=== PATIENT | male | born 1935 | race Caucasian/White ===

== ENCOUNTER 2019-09-21 12:08 | Emergency (ER) | payer SELFPAY ==
[~2019-09-21] VITALS: Ht 157.5 cm; Wt 65.8 kg
[~2019-09-21 12:08] MED LIST: ASPI-817 PO; ASPI-831 PO; ATOR20TA38 PO; ENAL10TA PO; INDA2.5T PO; METO-448 PO; NEBI5TAB9 PO; TAMS-14 PO; VINP1POW MC; [UNRECOGNIZED DRUG - OTHER]
[2019-09-21 12:13] VITALS: Ht 157.5 cm; Wt 65.8 kg
[2019-09-21] MEDS ORDERED: IODIXANOL LOCM 100 ML BTL ONE (12:33)
[2019-09-21] MEDS ORDERED: SOD CHLORIDE 0.9% 100 ML ONE (12:33)
[2019-09-21] MEDS ORDERED: SOD CHLORIDE 0.9% 500 ML IV STA (13:23)
[2019-09-21] MEDS ORDERED: ASPIRIN 325 MG TAB PO ONE (13:30)
[2019-09-21] MEDS ORDERED: ATORVASTATIN 80 MG TAB PO ONE (13:30)
[2019-09-21] MEDS ORDERED: POTASSIUM CHLORIDE 20 MEQ POWDER FOR ORAL SOLN PO ONE (13:30)
[2019-09-21] MEDS ORDERED: ONDANSETRON 4 MG INJ IV PRN ×2 (14:00→15:00)
[2019-09-21] MEDS ORDERED: ACETAMINOPHEN 325 MG TAB PO PRN ×2 (14:00→15:00)
[2019-09-21] MEDS ORDERED: hydrALAzine 20 MG INJ IV PRN (14:30)
[2019-09-21] MEDS ORDERED: NACL 0.9% 3 ML SYG IV SCH (15:00)
[2019-09-21 17:57] VITALS: BP 134/74; PULSE 87; RESP 18
[2019-09-21] MEDS ORDERED: HEPARIN 5,000 UNIT/1 ML VIAL SC SCH (21:00)
[2019-09-21] MEDS ORDERED: ATORVASTATIN 80 MG TAB PO SCH (21:00)
[2019-09-22] MEDS ORDERED: ASPIRIN (EC) 81 MG TAB PO SCH (09:00)
[2019-09-22] MEDS ORDERED: TAMSULOSIN (SR) 0.4 MG CAP PO SCH (09:00)
== END 2019-09-21 17:57 | disposition left against medical advice (07) ==
LOC: E/R 12:08
DX: I63.9 Cerebral infarction, unspecified (principal); R40.2242 Coma scale, best verbal response, confused conversation, at arrival to emergency department; R40.2362 Coma scale, best motor response, obeys commands, at arrival to emergency department; R40.2142 Coma scale, eyes open, spontaneous, at arrival to emergency department; I10 Essential (primary) hypertension; J45.909 Unspecified asthma, uncomplicated; E87.6 Hypokalemia; Z79.82 Long term (current) use of aspirin
CPT/HCPCS: 36415; 70450; 70496; 70498; 70551; 71045; 76775; 80053; 80061; 82378; 82550; 82553; 83036; 83735; 84439; 84443; 84484; 85025; 85610; 85730; 93005; 99285; J7040; Q9967